=== PATIENT | female | born 1945 | race Caucasian/White ===

== ENCOUNTER → 2021-03-09 | Outpatient (CLI) | payer OTHER ==
[2021-03-09 13:25] LABS: HEMOGLOBIN 11.6 gm/dl (12.3-15.3); RED BLOOD COUNT 3.42 M/UL (4.00-5.10); WHITE BLOOD COUNT 6.1 K/UL (4.5-11.0)
[2021-03-10 11:34] LABS: RHEUMATOID ARTHRITIS FACTOR <10.0 IU/mL (0.0-13.9)
== END ==
LOC: LAB 12:06
PROVIDERS: Nurse Practitioner Family
DX: D89.9 Disorder involving the immune mechanism, unspecified (principal); M25.50 Pain in unspecified joint; R76.8 Other specified abnormal immunological findings in serum; M10.9 Gout, unspecified; M79.641 Pain in right hand; M79.642 Pain in left hand
CPT/HCPCS: 36415; 73130; 80053; 82550; 83520; 83735; 83970; 84439; 84443; 84550; 85025; 85652; 86140; 86200; 86431